=== PATIENT | female | born 1980 | race Two or more races ===

== ENCOUNTER 2016-10-24 10:32 | Emergency (ER) | payer SELFPAY ==
[2016-10-24 10:46] VITALS: BP 140/92
--- NOTE | 2016-10-24 11:44 | UC ---
Throat Pain/Nasal Jai HPI - HPI Summary HPI Summary: DAY 3 OF SORE THROAT, SLIGHT COUGH AND CONGESTION. Has h/o C diff "feels like strep throat" [ End ] - History of Current Complaint Chief Complaint: UCGeneralIllness Stated Complaint: SORE THROAT Time Seen by Provider: 10/24/16 11:23 Hx Obtained From: Patient Hx Last Menstrual Period: 10/01/15 Onset/Duration: Sudden Onset Severity: Mild Cough: Nonproductive - Allergies/Home Medications Allergies/Adverse Reactions: Allergies Allergy/AdvReac Type Severity Reaction Status Date / Time No Known Allergies Allergy Verified 10/24/16 10:46 PMH/Surg Hx/FS Hx/Imm Hx Previously Healthy: Yes Endocrine History Of: Denies: Thyroid Disease Cancer History Of: Denies: Lung Cancer - Surgical History Surgical History: Yes Surgery Procedure, Year, and Place: D&C. - Family History Known Family History: Positive: None - Social History Occupation: Unemployed Lives: With Family Alcohol Use: Occasionally Substance Use Type: None Smoking Status (MU): Former Smoker Type: Cigarettes Amount Used/How Often: SMOKES SPORATICALLY, NOT A REGULAR SMOKER When Did the Patient Quit Smoking/Using Tobacco: 18 YRS AGO - Immunization History Most Recent Influenza Vaccination: FALL 2013 Review of Systems Constitutional: Negative Skin: Negative Eyes: Negative ENT: Negative, Sore Throat Respiratory: Negative Cardiovascular: Negative Gastrointestinal: Negative Genitourinary: Negative Motor: Negative Neurovascular: Negative Musculoskeletal: Negative Neurological: Negative Psychological: Negative All Other Systems Reviewed And Are Negative: Yes Physical Exam Triage Information Reviewed: Yes Appearance: Well-Appearing, No Pain Distress, Well-Nourished Vital Signs: Initial Vital Signs Temp 98 F 10/24/16 10:38 Pulse 69 10/24/16 10:38 Resp 16 10/24/16 10:38 BP 140/92 10/24/16 10:38 Pulse Ox 99 10/24/16 10:38 Eye Exam: Normal ENT Exam: Normal ENT: Positive: Pharyngeal erythema, Nasal congestion, Nasal drainage, TMs normal , Tonsillar swelling, Tonsillar exudate Dental Exam: Normal Neck exam: Normal Neck: Positive: 1 Respiratory Exam: Normal Cardiovascular Exam: Normal Musculoskeletal Exam: Normal Neurological Exam: Normal Psychological Exam: Normal Skin Exam: Normal Throat Pain/Nasal Course/Dx - Course Course Of Treatment: Centor score 3/4 and patient declined rapid strep at this time due to no insurance and aware of SE of amox like C diff - Differential Dx/Diagnosis Differential Diagnosis/HQI/PQRI: Peritonsillar Abscess, Pharyngitis, Tonsillitis , URI Provider Diagnoses: Strep pharyngitis Discharge - Discharge Plan Condition: Good Disposition: HOME Prescriptions: Amoxicillin CAP* [Amoxicillin 500 MG CAP*] 500 mg PO Q12H #20 cap Patient Education Materials: Strep Throat (ED) Referrals: Marlen Frausto MD [Primary Care Provider] - 3 Days Additional Instructions: Please start probiotics to minimize the chances of C diff which you have had once before.
== END 2016-10-24 11:58 | disposition home or self-care (01) ==
LOC: UCCORT 10:32
DX: J02.0 Streptococcal pharyngitis (principal); Z87.891 Personal history of nicotine dependence
CPT/HCPCS: 99212; G0463

== ENCOUNTER 2017-09-11 20:15 | Emergency (ER) | payer BC ==
[2017-09-11 20:47] VITALS: BP 144/91
--- NOTE | 2017-09-11 21:00 | UC ---
Complaint Female HPI - HPI Summary HPI Summary: 37 yo WF h/o BV per pt c/o vaginal itchiness and burning after taking macrobid x 7 days for UTI dx's at [facility] a week ago. Denies f/c/recent sexual activity - History Of Current Complaint Chief Complaint: UCGU Stated Complaint: PERSONAL Time Seen by Provider: 09/11/17 20:39 Hx Obtained From: Patient Hx Last Menstrual Period: 10/01/15 Onset/Duration: Sudden Onset, Lasting Days Timing: Lasting Days Severity Initially: Moderate Severity Currently: Moderate Pain Intensity: 6 - Allergies/Home Medications Allergies/Adverse Reactions: Allergies Allergy/AdvReac Type Severity Reaction Status Date / Time No Known Allergies Allergy Verified 09/11/17 20:47 Home Medications: Home Medications NK [No Home Medications Reported] 09/11/17 [History Confirmed 09/11/17] PMH/Surg Hx/FS Hx/Imm Hx Previously Healthy: Yes GI/ History: Other - BV Other GI/ History: BV - Surgical History Surgical History: Yes Surgery Procedure, Year, and Place: D&C. - Family History Known Family History: Positive: None - Social History Alcohol Use: Occasionally Substance Use Type: None Smoking Status (MU): Former Smoker Type: Cigarettes Amount Used/How Often: SMOKES SPORATICALLY, NOT A REGULAR SMOKER When Did the Patient Quit Smoking/Using Tobacco: 18 YRS AGO - Immunization History Most Recent Influenza Vaccination: FALL 2013 Review of Systems Constitutional: Negative Skin: Negative Eyes: Negative ENT: Negative Respiratory: Negative Cardiovascular: Negative Gastrointestinal: Negative Genitourinary: Vaginal/Penile Burning, Vaginal/Penile Itching Motor: Negative Neurovascular: Negative Musculoskeletal: Negative Neurological: Negative Psychological: Negative All Other Systems Reviewed And Are Negative: Yes Physical Exam Triage Information Reviewed: Yes Appearance: Well-Appearing Vital Signs: Initial Vital Signs Temp 37.0 C 09/11/17 20:28 Pulse 81 09/11/17 20:28 Resp 14 09/11/17 20:28 BP 144/91 09/11/17 20:28 Pulse Ox 98 09/11/17 20:28 Eye Exam: Normal ENT Exam: Normal Dental Exam: Normal Neck exam: Normal Neck: Positive: 1 Respiratory Exam: Normal Cardiovascular Exam: Normal Abdominal Exam: Normal Musculoskeletal Exam: Normal Neurological Exam: Normal Psychological Exam: Normal Skin Exam: Normal - Additional Comments Exam- Mildly erythematous vulva with mild pruritis NO d/c visualized, vaginal cx obtained Complaint Female Dx - Course Course Of Treatment: Vaginal candidiasis vs BV (pt has h/o BV) but in light of proximity of abx use, may be candidiasis, will tx with PO fluconazole and will obtain vaginal cx - Differential Dx/Diagnosis Provider Diagnoses: vaginitis Discharge - Discharge Plan Condition: Stable Disposition: HOME Referrals: Marlen Frausto MD [Primary Care Provider] -
[2017-09-11] MEDS ORDERED: Fluconazole 100 MG TAB* TAB PO ONE (21:01)
== END 2017-09-11 21:51 | disposition home or self-care (01) ==
LOC: UCCORT 20:15
DX: N76.0 Acute vaginitis (principal); Z87.891 Personal history of nicotine dependence
CPT/HCPCS: 87480; 87510; 87660; 99212; A9270-GY; G0463

== ENCOUNTER 2018-01-13 15:46 | Emergency (ER) | payer BC ==
[2018-01-13 16:39] VITALS: BP 138/97
--- NOTE | 2018-01-13 16:48 | UC ---
Respiratory Complaint HPI - HPI Summary HPI Summary: 37 yo female presents with a dry cough for the last week with feeling tired and "achy" the last 2-3 days. She admits that she was reading online and thinks she may have "walking pneumonia". She has been taking ibuprofen, which does make her feel better. Has not taken anything for her cough. Denies sore throat, sinus symptoms, SOB, chest pain, abdominal pain, n/v, dysuria. - History of Current Complaint Chief Complaint: UCRespiratory Stated Complaint: COUGH/WHEEZING Time Seen by Provider: 01/13/18 16:48 Hx Obtained From: Patient Hx Last Menstrual Period: mid-November 2017 ?: No Onset/Duration: Gradual Onset Severity Currently: None Pain Intensity: 0 Character: Cough: Nonproductive - Allergies/Home Medications Allergies/Adverse Reactions: Allergies Allergy/AdvReac Type Severity Reaction Status Date / Time ciprofloxacin Allergy Diarrhea Verified 01/13/18 16:33 PMH/Surg Hx/FS Hx/Imm Hx - Additional Past Medical History Additional PMH: None Previously Healthy: Yes - Surgical History Surgical History: Yes Surgery Procedure, Year, and Place: D&C. - Family History Known Family History: Positive: None - Social History Occupation: Employed Full-time Lives: With Family Alcohol Use: Occasionally Substance Use Type: None Smoking Status (MU): Former Smoker Type: Cigarettes Amount Used/How Often: SMOKES SPORATICALLY, NOT A REGULAR SMOKER When Did the Patient Quit Smoking/Using Tobacco: 18 YRS AGO - Immunization History Most Recent Influenza Vaccination: FALL 2013 Review of Systems Constitutional: Fatigue Skin: Negative Eyes: Negative ENT: Negative Respiratory: Cough Cardiovascular: Negative Gastrointestinal: Negative Genitourinary: Negative Neurovascular: Negative Neurological: Negative Psychological: Negative All Other Systems Reviewed And Are Negative: Yes Physical Exam - Summary Physical Exam Summary: GENERAL: NAD. WDWN. No pain distress. SKIN: No rashes, sores, lesions, or open wounds. HEENT: Head: AT/NC Eyes: Conjunctiva clear without inflammation or discharge. Ears: Hearing grossly normal. TMs intact, no bulging, erythema, or edema. Nose: Nasal mucosa pink and moist. NTTP maxillary and frontal sinus. Throat: Posterior oropharynx without exudates, erythema, or tonsillar enlargement. Uvula midline. NECK: Supple. Nontender. No lymphadenopathy. CHEST: Mild wheezing throughout. No r/r. No accessory muscle use. Breathing comfortably and in no distress. CV: RRR. Without m/r/g. Pulses intact. Brisk cap refill. NEURO: Alert. CN II-XII grossly intact. PSYCH: Age appropriate behavior. Triage Information Reviewed: Yes Vital Signs: Initial Vital Signs Temp 97.4 F 01/13/18 16:34 Pulse 77 01/13/18 16:34 Resp 16 01/13/18 16:34 BP 138/97 01/13/18 16:34 Pulse Ox 99 01/13/18 16:34 Diagnostic Evaluation - Laboratory O2 Sat by Pulse Oximetry: 99 Respiratory Course/Dx - Course Course Of Treatment: CXR: IMPRESSION:#. No evidence for acute intrathoracic disease. Suspect bronchitis. Rx for tessalon, albuterol inhaler, and cough syrup at bedtime. F/u if symptoms persist or worsen. - Differential Dx/Diagnosis Provider Diagnoses: Bronchitis Discharge - Sign-Out/Discharge Documenting (check all that apply): Patient Departure - Discharge Plan Condition: Stable Disposition: HOME Prescriptions: Albuterol HFA INHALER* [Ventolin HFA Inhaler*] 1 puff INH Q6H PRN #1 mdi PRN Reason: Wheezing Benzonatate CAP* [Tessalon 100 MG CAP*] 100 mg PO TID PRN #15 cap PRN Reason: Cough Codeine Phosphate/Guaifenesin [Guaifen-Codeine 100-10 mg/5 ml] 5 ml PO BEDTIME PRN #35 ml MDD 5mL PRN Reason: Cough Patient Education Materials: Acute Bronchitis (ED) Referrals: Marlen Frausto MD [Primary Care Provider] - Additional Instructions: If you develop a fever, shortness of breath, chest pain, new or worsening symptoms - please call your PCP or go to the ED. Your blood pressure was high at todays visit. Please see your primary provider within 4 weeks for recheck and re-evaluation. Per institutional requirements, I have reviewed the chart, however, I was not consulted specifically or made aware of this patient by the above midlevel provider. I did not personally evaluate, interact with , or disposition this patient. - Billing Disposition and Condition Condition: STABLE Disposition: Home
--- NOTE | 2018-01-13 17:39 | RAD ---
INDICATION: Cough. Occasional tobacco use. COMPARISON: November 02, 2010 TECHNIQUE: Dual energy PA and routine lateral views of the chest were obtained. REPORT: Clear lungs and pleural spaces. Negative for pneumothorax. Top normal heart size. Unremarkable central pulmonary vasculature and mediastinal contours. Unremarkable osseous structures and soft tissue contours. IMPRESSION: #. No evidence for acute intrathoracic disease.
== END 2018-01-13 17:59 | disposition home or self-care (01) ==
LOC: UCCORT 15:46
DX: J40 Bronchitis, not specified as acute or chronic (principal)
CPT/HCPCS: 71046; 84702; 99212; G0463

== ENCOUNTER 2018-07-29 09:30 | Emergency (ER) | payer BC ==
[2018-07-29 10:10] VITALS: BP 130/80
--- NOTE | 2018-07-29 11:47 | UC ---
Complaint Female HPI - HPI Summary HPI Summary: 37-year-old woman 37-year-old woman comes in with a chief complaint of urinary frequency urgency and dysuria started in the last 1 day. No fevers or chills. The dysuria is worse when she urinates when she is not urinating she doesn't have any. Has not tried any medications. No complaint of any abdominal pain or flank pain. No fevers or chills feels well otherwise. - History Of Current Complaint Chief Complaint: UCGU Stated Complaint: URINARY Time Seen by Provider: 07/29/18 11:41 Hx Last Menstrual Period: 07/11/18 Pain Intensity: 0 - Allergies/Home Medications Allergies/Adverse Reactions: Allergies Allergy/AdvReac Type Severity Reaction Status Date / Time ciprofloxacin Allergy Diarrhea Verified 07/29/18 10:04 PMH/Surg Hx/FS Hx/Imm Hx Previously Healthy: Yes - Surgical History Surgical History: Yes Surgery Procedure, Year, and Place: D&C. - Family History Known Family History: Positive: None - Social History Alcohol Use: Weekly Substance Use Type: None Smoking Status (MU): Former Smoker Type: Cigarettes Amount Used/How Often: SMOKES SPORATICALLY, NOT A REGULAR SMOKER When Did the Patient Quit Smoking/Using Tobacco: 18 YRS AGO - Immunization History Most Recent Influenza Vaccination: FALL 2013 Review of Systems All Other Systems Reviewed And Are Negative: Yes Constitutional: Positive: Negative Skin: Positive: Negative Eyes: Positive: Negative ENT: Positive: Negative Respiratory: Positive: Negative Cardiovascular: Positive: Negative Gastrointestinal: Positive: Negative Genitourinary: Positive: Dysuria, Frequency, Urgency Motor: Positive: Negative Neurovascular: Positive: Negative Musculoskeletal: Positive: Negative Neurological: Positive: Negative Psychological: Positive: Negative Is Patient Immunocompromised?: No Physical Exam Triage Information Reviewed: Yes Appearance: Well-Appearing, No Pain Distress, Well-Nourished Vital Signs: Initial Vital Signs Temp 98 F 07/29/18 10:02 Pulse 80 07/29/18 10:02 Resp 15 07/29/18 10:02 BP 130/80 07/29/18 10:02 Pulse Ox 99 07/29/18 10:02 Vital Signs Reviewed: Yes Eye Exam: Normal Eyes: Positive: Conjunctiva Clear Neck exam: Normal Neck: Positive: Supple Respiratory: Positive: Lungs clear, Normal breath sounds, No respiratory distress Cardiovascular: Positive: RRR Abdomen Description: Negative: CVA Tenderness (R), CVA Tenderness (L) Musculoskeletal Exam: Normal Musculoskeletal: Positive: Strength Intact, ROM Intact Neurological Exam: Normal Neurological: Positive: Alert, Muscle Tone Normal Psychological Exam: Normal Psychological: Positive: Age Appropriate Behavior Skin Exam: Normal Complaint Female Dx - Differential Dx/Diagnosis Provider Diagnosis: UTI (urinary tract infection) Discharge - Sign-Out/Discharge Documenting (check all that apply): Patient Departure All imaging exams completed and their final reports reviewed: No Studies - Discharge Plan Condition: Stable Disposition: HOME Prescriptions: Phenazopyridine 200 mg (NF) [Pyridium 200 MG tab *] 200 mg PO TID PRN #8 tab PRN Reason: Pain Sulfamethox/Trimethoprim DS* [Bactrim DS 800/160 TAB*] 1 tab PO BID #14 tab Patient Education Materials: Urinary Tract Infection in Women (ED) Referrals: Marlen Frausto MD [Primary Care Provider] - Additional Instructions: FOLLOW UP WITH YOUR DOCTOR IF NOT COMPLETELY IMPROVED. GET RECHECKED SOONER WITH ANY WORSENING OF YOUR CONDITION OR QUESTIONS OR CONCERNS. - Billing Disposition and Condition Condition: STABLE Disposition: Home
--- NOTE | 2018-07-30 17:25 | UC ---
- Progress Note Progress Note: Urine culture negative. Patient advised to stop the antibiotics. Course/Dx - Diagnoses Provider Diagnoses: UTI (urinary tract infection) Discharge - Sign-Out/Discharge Documenting (check all that apply): Patient Departure All imaging exams completed and their final reports reviewed: No Studies - Discharge Plan Condition: Stable Disposition: HOME Prescriptions: Phenazopyridine 200 mg (NF) [Pyridium 200 MG tab *] 200 mg PO TID PRN #8 tab PRN Reason: Pain Sulfamethox/Trimethoprim DS* [Bactrim DS 800/160 TAB*] 1 tab PO BID #14 tab Patient Education Materials: Urinary Tract Infection in Women (ED) Referrals: Marlen Frausto MD [Primary Care Provider] - Additional Instructions: FOLLOW UP WITH YOUR DOCTOR IF NOT COMPLETELY IMPROVED. GET RECHECKED SOONER WITH ANY WORSENING OF YOUR CONDITION OR QUESTIONS OR CONCERNS. - Billing Disposition and Condition Condition: STABLE Disposition: Home
== END 2018-07-29 11:55 | disposition home or self-care (01) ==
LOC: UCCORT 09:30
DX: N39.0 Urinary tract infection, site not specified (principal); Z88.1 Allergy status to other antibiotic agents; Z87.891 Personal history of nicotine dependence
CPT/HCPCS: 81003; 87086; 99212; G0463

== ENCOUNTER 2019-04-16 14:54 | Emergency (ER) | payer BC ==
[2019-04-16 15:48] VITALS: BP 138/83
--- NOTE | 2019-04-16 15:58 | UC ---
Ear Complaint HPI - HPI Summary HPI Summary: Pt presents with c/o bilateral ear pain that radiates down neck. Pt states she had URI 2 weeks ago and continues to have bilateral ear ache since onset of URI. Pain worsens with recumbent position. Denies fever or chills. - History of Current Complaint Chief Complaint: UCGeneralIllness Stated Complaint: BILATERAL EAR COMPLAINT Time Seen by Provider: 04/16/19 15:50 Hx Obtained From: Patient Hx Last Menstrual Period: 04/02/19 ?: No Onset/Duration: Gradual Onset, Lasting Days Severity Initially: Mild Severity Currently: Mild Pain Intensity: 4 Associated Signs/Symptoms: Positive: URI Symptoms - Allergies/Home Medications Allergies/Adverse Reactions: Allergies Allergy/AdvReac Type Severity Reaction Status Date / Time ciprofloxacin Allergy Diarrhea Verified 04/16/19 15:48 Home Medications: Home Medications NK [No Home Medications Reported] 04/16/19 [History Confirmed 04/16/19] PMH/Surg Hx/FS Hx/Imm Hx Previously Healthy: Yes - Surgical History Surgical History: Yes Surgery Procedure, Year, and Place: D&C. - Family History Known Family History: Positive: Cardiac Disease - Social History Occupation: Employed Full-time Lives: With Family Alcohol Use: Weekly Alcohol Amount: 1-2 times a week Substance Use Type: None Smoking Status (MU): Former Smoker Type: Cigarettes Amount Used/How Often: SMOKES SPORATICALLY, NOT A REGULAR SMOKER Have You Smoked in the Last Year: Yes When Did the Patient Quit Smoking/Using Tobacco: 18 YRS AGO - Immunization History Most Recent Influenza Vaccination: FALL 2013 Review of Systems All Other Systems Reviewed And Are Negative: Yes Constitutional: Positive: Negative Skin: Positive: Negative Eyes: Positive: Negative ENT: Positive: Ear Ache, Sinus Congestion Respiratory: Positive: Negative Cardiovascular: Positive: Negative Gastrointestinal: Positive: Negative Genitourinary: Positive: Negative Motor: Positive: Negative Neurovascular: Positive: Negative Musculoskeletal: Positive: Negative Neurological: Positive: Negative Psychological: Positive: Negative Is Patient Immunocompromised?: No Physical Exam Triage Information Reviewed: Yes Appearance: Well-Appearing Vital Signs: Initial Vital Signs Temp 97.8 F 04/16/19 15:43 Pulse 79 04/16/19 15:43 Resp 15 04/16/19 15:43 BP 138/83 04/16/19 15:43 Pulse Ox 99 04/16/19 15:43 Vital Signs Reviewed: Yes Eye Exam: Normal ENT: Positive: TM bulging - bilateral TM Dental Exam: Normal Neck exam: Normal Neck: Positive: Supple, Nontender Respiratory Exam: Normal Cardiovascular Exam: Normal Musculoskeletal Exam: Normal Neurological Exam: Normal Psychological Exam: Normal Skin Exam: Normal Ear Complaint Course/Dx - Differential Dx/Diagnosis Differential Diagnosis/HQI/PQRI: Otitis Media, URI Provider Diagnosis: Ear ache, Acute serous otitis media of both ears Discharge ED - Sign-Out/Discharge Documenting (check all that apply): Patient Departure All imaging exams completed and their final reports reviewed: No Studies - Discharge Plan Condition: Stable Disposition: HOME Patient Education Materials: Pseudoephedrine (By mouth), Serous Otitis Media ( ED) Referrals: Marlen Frausto MD [Primary Care Provider] - If Needed - Billing Disposition and Condition Condition: STABLE Disposition: Home - Attestation Statements Provider Attestation: Per institutional requirements, I have reviewed the chart, however, I was not consulted specifically or made aware of this patient by the midlevel provider. I did not personally evaluate, interact with , or disposition this patient.
== END 2019-04-16 16:04 | disposition home or self-care (01) ==
LOC: UCCORT 14:54
DX: H65.03 Acute serous otitis media, bilateral (principal); H92.03 Otalgia, bilateral; R09.81 Nasal congestion; M54.2 Cervicalgia; Z88.1 Allergy status to other antibiotic agents; Z87.891 Personal history of nicotine dependence
CPT/HCPCS: 99211; G0463

== ENCOUNTER 2019-07-28 14:21 | Emergency (ER) | payer BC ==
--- OUTSIDE RECORDS SUMMARY | 2019-07-28 16:01 | XMS REPORT | Continuity of Care Document ---
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 Active Problems Provider Date Mucopurulent conjunctivitis Marlen Frautso MD Onset: 07/15/2011 Moderate major depression, single episode Marlen Frausto MD Onset: 04/18/2014 Social History Type Date Description Comments Sex Unknown Tobacco Use Start: Unknown Never Smoked Cigarettes ETOH Use Occasionally consumes alcohol Tobacco Use Start: Unknown End: Unknown Patient is a former smoker Allergies, Adverse Reactions, Alerts Description No Known Drug Allergies Medications Active Medications SIG Qnty Indications Ordering Provider Date Amoxicillin 1 by mouth 30tabs Marlen Frausto MD 07/05/2019 500mg Tablets three times a day Zyrtec Allergy 1 by mouth 10tabs Jordi Garsia 09/05/2014 10mg every day Tablets History Medications Nitrofurantoin 1 po bid 6caps Jordi Garsia 05/26/2019 - Monohydrate/Macrocrystals 07/05/2019 100mg Capsules Immunizations CPT Code Status Date Vaccine Reaction Lot # [id number] Given 04/26/2019 Influenza Virus [id number] (Quadrivalent)Splitvirus 3 Years Of Age And Older [address]1240 Given 04/26/2019 Influenza Virus Vaccine, Quadrivalent, Split, Preservative Free [id number] Given 05/02/2013 Influenza Virus Vaccine Done through her [employer] (History Only) employer Vital Signs Date Vital Result Comment 07/05/2019 11:10am BP Systolic 136 mmHg BP Diastolic 88 mmHg Heart Rate 75 /min Body Temperature 97.9 F Respiratory Rate 16 /min Height 63.25 inches 5'3.25" Weight 265.00 lb BMI (Body Mass Index) 46.6 kg/m2 04/26/2019 2:39pm BP Systolic 150 mmHg BP Diastolic 90 mmHg Heart Rate 60 /min Respiratory Rate 18 /min Weight 268.00 lb Results Test Acquired Date Facility Test Result H/L Range Note CMP W/GFR 04/19/2019 [facility] Glucose 159 mg/dL High 65-99 1, 2 [address] [place] [id number] [phone] Urea Nitrogen (BUN) 14 mg/dL Normal 7-25 Creatinine 0.69 mg/dL Normal 0.50-1.10 eGFR Non-Afr. Italian 109 mL/min/1.73m2 Normal > Or = 60 eGFR 126 mL/min/1.73m2 Normal > Or = 60 BUN/Creatinine Ratio NOT APPLICABLE (calc) 6-22 Sodium 138 mmol/L Normal 135-146 Potassium 4.1 mmol/L Normal 3.5-5.3 Chloride 103 mmol/L Normal 98-110 Carbon Dioxide 25 mmol/L Normal 20-32 Calcium 9.0 mg/dL Normal 8.6-10.2 Protein, Total 6.5 g/dL Normal 6.1-8.1 Albumin 3.9 g/dL Normal 3.6-5.1 Globulin 2.6 g/dL(calc) Normal 1.9-3.7 Albumin/Globulin Ratio 1.5 (calc) Normal 1.0-2.5 Bilirubin, Total 0.5 mg/dL Normal 0.2-1.2 Alkaline Phosphatase 69 U/L Normal 33-115 Ast 12 U/L Normal 10-30 Alt 15 U/L Normal 6-29 Hemoblobin A1c 04/19/2019 [facility] Hemoglobin A1c 7.0 %oftotalHgb High <5.7 3 W/Eag [address] [place] [id number] [phone] eAG (mg/dL) 154 (calc) eAG (mmol/L) 8.5 (calc) Lipid Panel 04/19/2019 [facility] Cholesterol, Total 193 mg/dL Normal <200 [address] [place] [phone] [phone] HDL Cholesterol 55 mg/dL Normal >50 Triglycerides 129 mg/dL Normal <150 LDL-Cholesterol 114 mg/dL(calc) High 4 Chol/HDLC Ratio 3.5 (calc) Normal <5.0 Non HDL Cholesterol 138 mg/dL(calc) High <130 5 Laboratory test 04/19/2019 [facility] Enhanced PDF Report SEE IMAGE finding [address] [id number] [place] [id number] [phone] 1 FASTING FASTING:YES FASTING: YES 2 Fasting reference interval For someone without known diabetes, a glucose value >125 mg/dL indicates that they may have diabetes and this should be confirmed with a follow-up test. 3 For someone without known diabetes, a hemoglobin A1c value of 6.5% or greater indicates that they may have diabetes and this should be confirmed with a follow-up test. For someone with known diabetes, a value <7% indicates that their diabetes is well controlled and a value greater than or equal to 7% indicates suboptimal control. A1c targets should be individualized based on duration of diabetes, age, comorbid conditions, and other considerations. Currently, no consensus exists regarding use of hemoglobin A1c for diagnosis of diabetes for children. 4 Reference range: <100 Desirable range <100 mg/dL for primary prevention; <70 mg/dL for patients with CHD or diabetic patients with > or = 2 CHD risk factors. LDL-C is now calculated using the Chadwick-Clark calculation, which is a validated novel method providing better accuracy than the Friedewald equation in the estimation of LDL-C. Chadwick SS et al. ESTRELLA. 2013;310(19): 5359-6022 (http://education.[employer]/faq/NDC230) 5 For patients with diabetes plus 1 major ASCVD risk factor, treating to a non-HDL-C goal of <100 mg/dL (LDL-C of <70 mg/dL) is considered a therapeutic option. Procedures Description No Information Available Medical Devices Description No Information Available Encounters Type Date Location Provider Dx Diagnosis Office Visit 07/05/2019 Main Office Marlen Frausto MD J01.90 Acute sinusitis, 10:45a unspecified J02.0 Streptococcal pharyngitis Office Visit 04/26/2019 2:45p Main Office Marlen Frausto MD E11.65 Type 2 diabetes mellitus with hyperglycemia E78.5 Hyperlipidemia, unspecified I10 Essential (primary) hypertension E66.9 Obesity, unspecified Z23 Encounter for immunization Assessments Date Code Description Provider 07/05/2019 J01.90 Acute sinusitis, unspecified Marlen Frausto MD 07/05/2019 J02.0 Streptococcal pharyngitis Marlen Frausto MD 04/26/2019 E11.65 Type 2 diabetes mellitus with hyperglycemia Marlen Frausto MD 04/26/2019 E78.5 Hyperlipidemia, unspecified Marlen Frausto MD 04/26/2019 I10 Essential (primary) hypertension Marlen Frausto MD 04/26/2019 E66.9 Obesity, unspecified Marlen Frausto MD 04/26/2019 Z23 Encounter for immunization Marlen Frausto MD Plan of Treatment Future Appointment(s):08/08/2019 8:00 am - Nurse at Main [id number]/16/2019 2: 45 pm - Marlen Frausto MD at Main Office Functional Status Description No Information Available Mental Status Description No Information Available Referrals Description No Information Available
--- OUTSIDE RECORDS SUMMARY | 2019-07-28 16:01 | XMS REPORT | Continuity of Care Document ---
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 Problems Active Problems Provider Date Mucopurulent conjunctivitis Marlen Frausto MD Onset: 07/15/2011 Moderate major depression, single episode Marlen Frausto MD Onset: 04/18/2014 Social History Type Date Description Comments Sex Unknown Tobacco Use Start: Unknown Never Smoked Cigarettes ETOH Use Occasionally consumes alcohol Tobacco Use Start: Unknown End: Unknown Patient is a former smoker Allergies, Adverse Reactions, Alerts Description No Known Drug Allergies Medications Active Medications SIG Qnty Indications Ordering Provider Date Nitrofurantoin 1 po bid 6caps Jordi Garsia 05/26/2019 Monohydrate/Macrocrystal s 100mg Capsules Zyrtec Allergy 1 by mouth 10tabs Jordi Garsia 09/05/2014 10mg Tablets every day Immunizations CPT Code Status Date Vaccine Reaction Lot # [id number] Given 04/26/2019 Influenza Virus [id number] (Quadrivalent)Splitvirus 3 Years Of Age And Older 58874 Given 04/26/2019 Influenza Virus Vaccine, Quadrivalent, Split, Preservative Free 92386 Given 05/02/2013 Influenza Virus Vaccine Done through her [employer] (History Only) employer Vital Signs Date Vital Result Comment 04/26/2019 2:39pm BP Systolic 150 mmHg BP Diastolic 90 mmHg Heart Rate 60 /min Respiratory Rate 18 /min Weight 268.00 lb 12/06/2018 3:00pm BP Systolic 130 mmHg BP Diastolic 90 mmHg Heart Rate 76 /min Height 63.25 inches 5'3.25" Weight 266.00 lb BMI (Body Mass Index) 46.7 kg/m2 Results Test Acquired Date Facility Test Result H/L Range Note CMP W/GFR 04/19/2019 [facility] Glucose 159 mg/dL High 65-99 1, 2 [address] [place], [place] [phone] Urea Nitrogen (BUN) 14 mg/dL Normal 7-25 Creatinine 0.69 mg/dL Normal 0.50-1.10 eGFR Non-Afr. [place] Citizen 109 mL/min/1.73m2 Normal > Or = 60 [...] U/L Normal 6-29 Hemoblobin A1c 04/19/2019 [facility] Hemoglobin A1c 7.0 %oftotalHgb High <5.7 3 W/Eag [address] [place], [place] [phone] eAG (mg/dL) 154 (calc) eAG (mmol/L) 8.5 (calc) Lipid Panel 04/19/2019 [facility] Cholesterol, Total 193 mg/dL Normal <200 [address] [place], [place] [phone] HDL Cholesterol 55 mg/dL Normal >50 Triglycerides 129 mg/dL Normal <150 LDL-Cholesterol 114 mg/dL(calc) High 4 Chol/HDLC Ratio 3.5 (calc) Normal <5.0 Non HDL Cholesterol 138 mg/dL(calc) High <130 5 Laboratory test 04/19/2019 [facility] Enhanced PDF Report SEE IMAGE finding [address] [id number] [facility] [address] [phone] FASTING FASTING:YES FASTING: YES 2 Fasting [...] of LDL-C. Chadwick SS et al. ESTRELLA. 2013;310(08): 1516-5445 (http://education.demandmart/faq/AVQ413) 5 For patients with diabetes plus 1 major ASCVD risk factor, treating to a non-HDL-C goal of <100 mg/dL (LDL-C of <70 mg/dL) is considered a therapeutic option. Procedures Description No Information Available Medical Devices Description No Information Available Encounters Type Date Location Provider Dx Diagnosis Office Visit 04/26/2019 Main Office Marlen Frausto MD E11.65 Type 2 diabetes mellitus 2:45p with hyperglycemia E78.5 Hyperlipidemia, unspecified I10 Essential (primary) hypertension E66.9 Obesity, unspecified Z23 Encounter for immunization Assessments Date Code Description Provider 04/26/2019 E11.65 Type 2 diabetes mellitus with hyperglycemia Marlen Frausto MD 04/26/2019 E78.5 Hyperlipidemia, unspecified Marlen Frausto MD 04/26/2019 I10 Essential (primary) hypertension Marlen Frausto MD 04/26/2019 E66.9 Obesity, unspecified Marlen Frausto MD 04/26/2019 Z23 Encounter for immunization Marlen Frausto MD Plan of Treatment Future Appointment(s):08/08/2019 8:00 am - Nurse at Main [id number]/16/2019 2: 45 pm - Marlen Frausto MD at Main Office Functional Status Description No Information Available Mental Status Description No Information Available Referrals Description No Information Available
--- OUTSIDE RECORDS SUMMARY | 2019-07-28 16:01 | XMS REPORT | Continuity of Care Document ---
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 Problems Provider Date Mucopurulent conjunctivitis [...] Medications SIG Qnty Indications Ordering Provider Date Zyrtec Allergy 1 by mouth 10tabs Jordi Garsia 09/05/2014 10mg every day Tablets History Medications Nitrofurantoin 1 po bid 6caps Jordi Garsia 05/26/2019 - Monohydrate/Macrocrystals 07/05/2019 100mg Capsules Immunizations CPT Code Status Date Vaccine Reaction Lot # [id number] Given 04/26/2019 Influenza Virus [id number] (Quadrivalent)Splitvirus 3 Years Of Age And Older [address] Given 04/26/2019 Influenza Virus Vaccine, Quadrivalent, Split, Preservative Free 82140 Given 05/02/2013 Influenza Virus Vaccine Done through her [employer] (History Only) employer Vital Signs Date Vital Result Comment 07/05/2019 11:10am BP Systolic 136 mmHg BP Diastolic 88 mmHg Heart Rate 75 /min Respiratory Rate 16 /min Height 63.25 inches 5'3.25" Weight 265.00 lb BMI (Body Mass Index) 46.6 kg/m2 04/26/2019 2:39pm BP Systolic 150 mmHg BP Diastolic 90 mmHg Heart Rate 60 /min Respiratory Rate 18 /min Weight 268.00 lb Results Test Acquired Date Facility Test Result H/L Range Note CMP W/GFR 04/19/2019 [facility] Glucose 159 mg/dL High 65-99 1, 2 [address] [place] [address] [phone] Urea Nitrogen (BUN) 14 mg/dL Normal 7-25 Creatinine 0.69 mg/dL Normal 0.50-1.10 eGFR Non-Afr. Paraguayan 109 mL/min/1.73m2 Normal > Or = 60 [...] 15 U/L Normal 6-29 Hemoblobin A1c 04/19/2019 [facility] Hemoglobin A1c 7.0 %oftotalHgb High <5.7 3 W/Eag [address] [place] [address] [phone] eAG (mg/dL) 154 (calc) eAG (mmol/L) 8.5 (calc) Lipid Panel 04/19/2019 [facility] Cholesterol, Total 193 mg/dL Normal <200 [address] [place] [address] [phone] HDL Cholesterol 55 mg/dL Normal >50 Triglycerides 129 mg/dL Normal <150 LDL-Cholesterol 114 mg/dL(calc) High 4 Chol/HDLC Ratio 3.5 (calc) Normal <5.0 Non HDL Cholesterol 138 mg/dL(calc) High <130 5 Laboratory test 04/19/2019 [facility] Enhanced PDF Report SEE IMAGE finding [address] [id number] [place] [id number] [phone] FASTING FASTING:YES FASTING: YES 2 Fasting [...] factors. LDL-C is now calculated using the Chadwick-Amber calculation, which is a validated novel method providing better accuracy than the Friedewald equation in the estimation of LDL-C. Chadwick SS et al. ESTRELLA. 2013;310(19): 2185-5340 (http://education.[employer].C[employer]/faq/MPU361) 5 For patients with diabetes plus 1 [...] Appointment(s):08/08/2019 8:00 am - Nurse at Main Fijvii4508/16/2019 2: 45 pm - Marlen Frausto MD at Main Office Functional Status Description No Information Available Mental Status Description No Information Available Referrals Description No Information Available
[2019-07-28 16:29] VITALS: BP 152/92
--- NOTE | 2019-07-28 16:55 | UC ---
Complaint Female HPI - HPI Summary HPI Summary: Pt presents with concern for UTI. Pt has frequent UTI's and was given RX for Bactrim by PCP. Pt states she began bactrim last week at first sign of UTI and then broke out in hives on face after taking 3 tablets. Pt called PCP, pcp instructed pt to stop taking bactrim but did not rx a different antibiotic. Pt is concerned that she still has an "infection" - History Of Current Complaint Stated Complaint: UTI Time Seen by Provider: 07/28/19 16:21 Hx Obtained From: Patient Hx Last Menstrual Period: 04/02/19 ?: No Onset/Duration: Sudden Onset, Resolved Timing: Constant Severity Initially: Mild Severity Currently: None Pain Intensity: 0 Character: Dull, Burning Aggravating Factor(s): Urination Associated Signs And Symptoms: Positive: Negative - Risk Factors Ectopic Risk Factor: Negative Ovarian Torsion Risk Factor: Reproductive Age - Allergies/Home Medications Allergies/Adverse Reactions: Allergies Allergy/AdvReac Type Severity Reaction Status Date / Time ciprofloxacin Allergy Diarrhea Verified 07/28/19 16:29 PMH/Surg Hx/FS Hx/Imm Hx Previously Healthy: Yes - Surgical History Surgical History: Yes Surgery Procedure, Year, and Place: D&C. - Family History Known Family History: Positive: Cardiac Disease - Social History Occupation: Employed Full-time Lives: With Family Alcohol Use: Weekly Alcohol Amount: 1-2 times a week Substance Use Type: None Smoking Status (MU): Former Smoker Type: Cigarettes Amount Used/How Often: SMOKES SPORATICALLY, NOT A REGULAR SMOKER Have You Smoked in the Last Year: Yes When Did the Patient Quit Smoking/Using Tobacco: 18 YRS AGO - Immunization History Most Recent Influenza Vaccination: FALL 2013 Vaccination Up to Date: Yes Review of Systems All Other Systems Reviewed And Are Negative: Yes Constitutional: Positive: Negative Skin: Positive: Negative Eyes: Positive: Negative ENT: Positive: Negative Respiratory: Positive: Negative Cardiovascular: Positive: Negative Gastrointestinal: Positive: Negative Genitourinary: Positive: Negative Motor: Positive: Negative Neurovascular: Positive: Negative Musculoskeletal: Positive: Negative Neurological: Positive: Negative Psychological: Positive: Negative Is Patient Immunocompromised?: No Physical Exam Triage Information Reviewed: Yes Appearance: Well-Appearing Vital Signs: Initial Vital Signs Temp 97.8 F 07/28/19 16:23 Pulse 73 07/28/19 16:23 Resp 18 07/28/19 16:23 BP 152/92 07/28/19 16:23 Pulse Ox 99 07/28/19 16:23 Vital Signs Reviewed: Yes Eye Exam: Normal ENT Exam: Normal Dental Exam: Normal Neck exam: Normal Respiratory Exam: Normal Cardiovascular Exam: Normal Abdominal Exam: Normal Abdomen Description: Positive: Nontender Musculoskeletal Exam: Normal Neurological Exam: Normal Psychological Exam: Normal Skin Exam: Normal Complaint Female Dx - Differential Dx/Diagnosis Differential Diagnosis/HQI/PQRI: Urinary Tract Infection Provider Diagnosis: UTI symptoms Discharge ED - Sign-Out/Discharge Documenting (check all that apply): Patient Departure All imaging exams completed and their final reports reviewed: No Studies - Discharge Plan Condition: Stable Disposition: HOME Patient Education Materials: Dysuria (ED) Referrals: Marlen Frausto MD [Primary Care Provider] - If Needed Man Sepulveda MD [Medical Doctor] - If Needed Additional Instructions: Please follow up with your PCP as needed. - Billing Disposition and Condition Condition: STABLE Disposition: Home
== END 2019-07-28 17:04 | disposition home or self-care (01) ==
LOC: UCCORT 14:21
DX: R39.9 Unspecified symptoms and signs involving the genitourinary system (principal); Z87.891 Personal history of nicotine dependence; Z88.1 Allergy status to other antibiotic agents
CPT/HCPCS: 81003; 99211; G0463